=== PATIENT | female | born 1985 | race Caucasian/White ===

== ENCOUNTER 2022-04-16 12:55 | Emergency (ER) | payer OTHER ==
[2022-04-16] MEDS ORDERED: diphenhydrAMINE 50 MG/ML VIAL ONE (16:44)
[2022-04-16] MEDS ORDERED: Ketorolac Tromethamine 30 MG/ML VIAL ONE (16:44)
== END 2022-04-16 18:05 | disposition home or self-care (01) ==
LOC: CSHERS 12:55
DX: B34.9 Viral infection, unspecified (principal); Z20.822 Contact with and (suspected) exposure to COVID-19
CPT/HCPCS: 96374; 96375; J1200; J1885; U0003; U0005

== ENCOUNTER 2022-08-31 09:20 | Emergency (ER) | payer OTHER ==
[2022-08-31 09:58] LABS: #Basophils 0.1 10x3/uL (0.0-0.2); #Eosinphils 0.1 10x3/uL (0.0-0.5); #Monocytes 0.6 10x3/uL (0.0-1.1); #Neutrophils 5.1 10x3/uL (1.5-8.4); %Basophils 1.1 % (0.0-2.0); %Eosinophils 0.8 % (0.0-6.0); %Lymphocytes 21.3 % (18.0-47.0); %Neutrophils 68.7 % (40.0-75.0); Hemoglobin 11.7 g/dL (12.0-15.5); Mean Corpuscular Hemoglobin 29.6 pg (27.0-33.0); Mean Corpuscular Volume 87.1 fl (81.6-98.3); Mean Platelet Volume 9.2 fl (7.4-10.4); Platelet Count 280 10x3/uL (150-450); RBC Distribution Width 11.9 % (11.5-14.5); Red Blood Cell (RBC) Count 3.95 10x6/uL (3.90-5.03); White Blood Cell (WBC) Count 7.5 10x3/uL (3.5-10.5)
[2022-08-31] MEDS ORDERED: Acetaminophen 325 MG TAB ONE (09:59)
[2022-08-31 10:13] LABS: Anion Gap 17 mmol/L (10-20); BUN (Urea Nitrogen) 6 mg/dL (7.0-18.7); CK (CPK) 146 U/L (29-168); Calc. Creatinine Clearance 0 mL/min (70-130); Carbon Dioxide 23 mmol/L (22-29); Chloride 101 mmol/L (98-107); Estimated GFR 91; Glucose 107 mg/dL (70-105); Potassium 3.6 mmol/L (3.5-5.1); Sodium 137 mmol/L (136-145)
== END 2022-08-31 11:50 | disposition home or self-care (01) ==
LOC: CSHERS 09:20
DX: R56.9 Unspecified convulsions (principal); F41.9 Anxiety disorder, unspecified
CPT/HCPCS: 80048; 82550; 85025; 99284

== ENCOUNTER 2023-04-09 13:05 | Outpatient (CLI) | payer OTHER | END 2023-04-09 13:06 | disposition home or self-care (01) | LOC: CSHMAMMO 13:05 | PROVIDERS: ATTEND Physician Assistant | DX: Z12.31 Encounter for screening mammogram for malignant neoplasm of breast (principal); Z80.3 Family history of malignant neoplasm of breast | CPT/HCPCS: 77063; 77067 ==

== ENCOUNTER 2023-10-11 14:44 | Emergency (ER) | payer OTHER ==
[2023-10-11] MEDS ORDERED: Morphine 4 MG/ML VIAL ONE (16:24)
[2023-10-11] MEDS ORDERED: Ketorolac Tromethamine 30 MG (1 mL) VIAL ONE (17:26)
== END 2023-10-11 17:15 | disposition home or self-care (01) ==
LOC: CSHERS 14:44
DX: R07.81 Pleurodynia (principal)
CPT/HCPCS: 96372; 99283; J1885; J2270